=== PATIENT | female | born 1935 | race Caucasian/White ===

== ENCOUNTER 2022-03-09 03:00 | Observation (INO) ==
[2022-03-09] MEDS ORDERED: Ondansetron 4 MG/2 ML VIAL IVP PRN (07:31)
[2022-03-09] MEDS ORDERED: Naloxone 0.4 MG/ML INJ IVP PRN (07:31)
[2022-03-09 09:23] LABS: Basophils % 0.5 %; Eosinophils # 0.1 K/mcL (0.0-0.6); Eosinophils % 1.4 %; Hematocrit 33.8 % (35.3-44.9); Hemoglobin 10.6 g/dL (11.5-15.4); Immature Granulocytes % 0.5 % (0-4); Lymphocytes # 0.8 K/mcL (0.6-4.6); Lymphocytes % 18.1 %; Mean Corpuscular HGB Conc 31.4 g/dL (31.6-35.5); Mean Corpuscular Hemoglobin 25.2 pg (28.0-33.3); Mean Corpuscular Volume 80.3 fL (83.0-100.0); Mean Platelet Volume 9.5 fL (9.4-12.4); Monocytes # 0.4 K/mcL (0.0-1.3); Monocytes % 8.7 %; Platelet Count 220 K/mcL (140-400); Red Blood Count 4.21 M/mcL (3.82-4.97); Red Cell Distribution Width 17.3 % (11.5-14.5); Segmented Neutrophils % 70.8 %; White Blood Count 4.3 K/mcL (4.3-11.1)
[2022-03-09 09:38] LABS: INR 0.9; Prothrombin Time 10.2 Seconds (9.4-12.1)
[2022-03-09] MEDS: *HR* OxyCODONE/APAP 7.5/325 TABLET PO SCH ×2 (10:12→17:10)
[2022-03-09] MEDS: Pantoprazole 40 MG VIAL IVP SCH (17:09)
[2022-03-09] MEDS: Mirtazapine 15 MG TABLET PO SCH (20:48)
[2022-03-10] MEDS: *HR* OxyCODONE/APAP 7.5/325 TABLET PO SCH ×4 (00:12→17:09)
[2022-03-10] MEDS: Pantoprazole 40 MG VIAL IVP SCH ×2 (06:10→17:09)
[2022-03-10 06:29] LABS: Basophils % 0.8 %; Eosinophils # 0.2 K/mcL (0.0-0.6); Hematocrit 31.5 % (35.3-44.9); Hemoglobin 9.5 g/dL (11.5-15.4); Immature Granulocytes % 0.3 % (0-4); Lymphocytes # 0.8 K/mcL (0.6-4.6); Lymphocytes % 21.7 %; Mean Corpuscular HGB Conc 30.2 g/dL (31.6-35.5); Mean Corpuscular Hemoglobin 24.7 pg (28.0-33.3); Mean Corpuscular Volume 81.8 fL (83.0-100.0); Mean Platelet Volume 9.5 fL (9.4-12.4); Monocytes # 0.5 K/mcL (0.0-1.3); Monocytes % 13.4 %; Neutrophils # 2.2 K/mcL (1.6-8.9); Platelet Count 223 K/mcL (140-400); Red Blood Count 3.85 M/mcL (3.82-4.97); Red Cell Distribution Width 18.2 % (11.5-14.5); Segmented Neutrophils % 59.8 %; White Blood Count 3.7 K/mcL (4.3-11.1)
[2022-03-10 06:49] LABS: BUN/Creatinine Ratio 22 (6-26); Blood Urea Nitrogen 20 mg/dL (8-23); Calcium 8.3 mg/dL (8.6-10.3); Carbon Dioxide 27 mEq/L (23-29); Chloride 111 mEq/L (98-107); Glucose 84 mg/dL (70-105); Osmolality,Calculated 294 (280-300); Potassium 3.6 mEq/L (3.5-5.1); Sodium 141 mEq/L (136-145); eGFR For African Americans > 60 (> 60); eGFR For Non-African Americans 58 (> 60)
[2022-03-10] MEDS: Spironolactone 12.5 MG TABLET PO SCH (09:51)
[2022-03-10] MEDS: Mirtazapine 15 MG TABLET PO SCH (20:01)
[2022-03-11] MEDS: *HR* OxyCODONE/APAP 7.5/325 TABLET PO SCH ×5 (00:22→18:04)
[2022-03-11] MEDS: Pantoprazole 40 MG VIAL IVP SCH ×2 (06:06→18:05)
[2022-03-11] MEDS: Spironolactone 12.5 MG TABLET PO SCH (08:11)
[2022-03-11] MEDS ORDERED: Lidocaine -MPF 4% 5 ML AMPUL ONE (11:51)
[2022-03-11] MEDS ORDERED: *HR* Propofol 200 MG/20 ML VIAL IVP ONE (11:51)
[2022-03-11 11:52] LABS: Basophils % 0.3 %; Eosinophils # 0.1 K/mcL (0.0-0.6); Eosinophils % 1.7 %; Hematocrit 36.7 % (35.3-44.9); Immature Granulocytes % 0.9 % (0-4); Lymphocytes % 17.3 %; Mean Corpuscular Hemoglobin 25.2 pg (28.0-33.3); Mean Platelet Volume 9.4 fL (9.4-12.4); Monocytes # 0.4 K/mcL (0.0-1.3); Monocytes % 7.5 %; Neutrophils # 4.3 K/mcL (1.6-8.9); Platelet Count 219 K/mcL (140-400); Red Blood Count 4.37 M/mcL (3.82-4.97); Red Cell Distribution Width 19.5 % (11.5-14.5); Segmented Neutrophils % 72.3 %
[2022-03-11 11:53] LABS: White Blood Count 5.9 K/mcL (4.3-11.1)
[2022-03-11 12:07] LABS: % Iron Saturation 6 % (15-50); Iron 29 mcg/dL (50-170); Transferrin 321 mg/dL (203-362)
[2022-03-11 12:08] LABS: BUN/Creatinine Ratio 20 (6-26); Blood Urea Nitrogen 17 mg/dL (8-23); Calcium 8.3 mg/dL (8.6-10.3); Carbon Dioxide 27 mEq/L (23-29); Chloride 107 mEq/L (98-107); Glucose 79 mg/dL (70-105); Osmolality,Calculated 286 (280-300); Potassium 3.4 mEq/L (3.5-5.1); Sodium 138 mEq/L (136-145); eGFR For African Americans > 60 (> 60); eGFR For Non-African Americans > 60 (> 60)
[2022-03-11] MEDS ORDERED: Iron Sucrose Complex 200 MG in 0.9 % Sodium Chloride 100 ML IVPB ONE (13:13)
[2022-03-11 13:34] VITALS: BP 178/80; PULSE 66; TEMP 98.7; O2SAT 98
== END 2022-03-11 18:03 | disposition home or self-care (01) ==
LOC: 2NENU → SUATTDRO 06:26
PROVIDERS: ADMIT Internal Medicine; ATTEND Internal Medicine
PROC: ENDOEBX (2022-03-11 13:00)